=== PATIENT | male | born 1965 | race Caucasian/White ===

== ENCOUNTER 2017-06-22 16:45 | Emergency (ER) | payer MEDICARE, OTHER ==
[~2017-06-22] VITALS: Ht 172.7 cm; Wt 76.2 kg
[~2017-06-22 16:45] MED LIST: AUGMENTIN 875-1 EACH PO; BACTROBAN2% TP; CLONAZEPAM 1MG T1 MG PO; KEFLEX 500MG.500 MG PO; LEVOTHYROXINE0.1 MG PO; LORTAB 5/500 501 TAB PO; LORTAB 7.5/3251 TAB PO; MEDROL 4MG. DOSE4 MG PO; METHOCARBAMOL750 MG PO; NAPROSYN 500MG500 MG PO; SEPTRA DS 800 M1 TAB PO
--- OUTSIDE RECORDS SUMMARY | 2017-06-22 17:03 | External Medical Summary Rpt | CCD ---
Author Author , NICOLE Organization NICOLE Address Unknown Phone [email or web address] Purpose Continuity of Care Document - 06-20-2017 through 2016 Results Labs Lab Lab Date Result Refere Interp Status Commen Order Detail nces retati t Range on Erythrocyte sedimentation rate by damaso (06-20-2017 17:10) Erythro = 57 0-20 complet cyte 017 mm/hr ed sedimen 17:10 tation rate by damaso CBC w auto diff (06-20-2017 17:10) Automat = 0.1 0.0-0.4 complet ed 017 K/mm3 ed blood 17:10 eosinop hil count Blood = 11.8 4.8-10. complet leukocy 017 K/MM3 8 ed thee 17:10 count (number /volume ) Automat = 12.6 11.5-17 complet ed 017 % .5 ed erythro 17:10 cyte distrib ution width Red = 4.56 4.6-6.2 complet blood 017 M/mm3 ed cell 17:10 count Blood = 343 142-424 complet platele 017 K/mm3 ed t count 17:10 Automat = 7.4 7.4-10. complet ed 017 fl 4 ed blood 17:10 platele t mean volume rosalind [place] % = 9.1 % 1.7-9.3 complet 017 ed 17:10 Absolut = 1.1 0.1-1.0 complet e 017 K/mm3 ed monocyt 17:10 e count Automat = 91.2 82.2-97 complet ed 017 fl .8 ed erythro 17:10 cyte mean corpusc ular v Automat = 33.6 31.8-35 complet ed 017 g/dl .4 ed erythro 17:10 cyte mean corpusc ular h Mean = 30.6 27-31.2 complet corpusc 017 pg ed ular 17:10 hemoglo bin (MCH) determ Lymphoc = 12.1 10-50 complet yte 017 % ed count, 17:10 blood, automat ed Absolut = 1.4 0.7-4.5 complet e 017 K/mm3 ed lymphoc 17:10 yte count Blood = 14.0 14.1-18 complet hemoglo 017 g/dL .0 ed bin 17:10 measure ment (mass/v olum Blood = 41.5 42.0-52 complet hematoc 017 % .0 ed rit 17:10 (volume fractio n) Granulo = 77.2 37.0-80 complet cyte 017 % .0 ed percent 17:10 age Blood = 9.1 1.3-8.0 complet granulo 017 K/mm3 ed cytes 17:10 automat ed count (numb Automat = 0.9 % 0.1-12. complet ed 017 0 ed blood 17:10 eosinop hils/10 0 leukocy t Baso % = 0.7 % 0.1-2.0 complet 017 ed 17:10 Automat = 0.1 0-0.2 complet ed 017 K/MM3 ed blood 17:10 basophi l count (count/ vo Blood lactic acid measurement (moles/vol (06-20-2017 17:10) Blood = 1.0 0.4-2.0 complet lactic 017 mmol/L ed acid 17:10 measure ment (moles/ vol CRP (06-20-2017 17:10) CRP = 12.1 0.0-0.9 complet 017 MG/DL ed 17:10 Comprehensive metabolic panel (06-20-2017 17:10) Protein = 7.5 6.4-8.2 complet total 017 gm/dL ed ser/hector 17:10 s ALT = 20 12-78 complet (SGPT) 017 U/L ed ser/hector 17:10 s Serum = 13 15-37 complet or 017 U/L ed plasma 17:10 asparta te aminotr ansfera Serum = 136 136-145 complet sodium 017 mmoL/L ed measure 17:10 ment Serum = 4.0 3.5-5.1 complet potassi 017 mmoL/L ed um 17:10 measure ment Serum = 84 74-106 complet or 017 mg/dL ed plasma 17:10 glucose measure ment (mas Serum = 4.0 1.3-3.2 complet globuli 017 gm/dL ed n 17:10 measure ment (mass/v olume) Estimat = 89 >60 complet ed 017 ML/MIN ed glomeru 17:10 lar filtrat ion rate (GF Comment: REFERENCE RANGE: >60 ML/MIN/1.73 SQUARE METERS Comment: If this patient is -[place]agu[place], then multiply the Comment: result by 1.210. Estimat = 105 50-200 complet ion of 017 ML/MIN ed creatin 17:10 ine renal clearan ce Serum = 0.9 0.70-1. complet or 017 mg/dL 30 ed plasma 17:10 creatin ine measure ment ( Carbon = 28 21.0-32 complet dioxide 017 mmoL/L .0 ed 17:10 measure ment Serum = 103 98-107 complet or 017 mmoL/L ed plasma 17:10 chlorid e measure ment (mo Serum = 9.3 8.5-10. complet or 017 mg/dL 1 ed plasma 17:10 calcium measure ment (mas Serum = 13 7-18 complet or 017 mg/dL ed plasma 17:10 urea nitroge n measure men Serum = 0.5 0.2-1.0 complet or 017 mg/dL ed plasma 17:10 total bilirub in measure m Serum = 77 46-116 complet or 017 U/L ed plasma 17:10 alkalin e phospha tase rosalind Serum = 3.5 3.4-5.0 complet or 017 gm/dL ed plasma 17:10 albumin measure ment (mas Serum 11-02-2 = 0.9 1.1-1.8 complet or 017 ed plasma 17:10 albumin /globul in mass ra
--- OUTSIDE RECORDS SUMMARY | 2017-06-22 17:03 | External Medical Summary Rpt | CCD ---
Author Author , NICOLE Organization NICOLE Address Unknown Phone [email or web address] Purpose Continuity of Care Document - 06-20-2017 [...] blood 17:10 platele t mean volume rosalind [place] % = 9.1 % 1.7-9.3 complet 017 [...] SQUARE METERS Comment: If this patient is -Russian, then multiply the Comment: result by 1.210. [...]
--- OUTSIDE RECORDS SUMMARY | 2017-06-22 17:04 | External Medical Summary Rpt | CCD ---
Demographics Preferred Language [place] Citizen Marital Status Unknown Hinduism Affiliation Unknown Race Unknown Ethnic Group Unknown Author Author , VALENTINA Organization [facility] Address Unknown Phone Immunization Unable to retrieve immunization data due to connection failure with Immunization Registry. Please try again later.
--- OUTSIDE RECORDS SUMMARY | 2017-06-22 17:04 | External Medical Summary Rpt | CCD ---
Demographics Preferred Language Slovenian Marital Status Unknown Adventism Affiliation Unknown Race Unknown Ethnic Group Unknown Author Author , VALENTINA Organization [facility] Address Unknown Phone Immunization Unable to retrieve immunization data due to connection failure with Immunization Registry. Please try again later.
--- OUTSIDE RECORDS SUMMARY | 2017-06-22 17:05 | External Medical Summary Rpt ---
Author Author NICOLE Amanda, [employer] Organization [employer] Address Unknown Phone Unavailable Results CBC W Auto Differential panel in Blood Observa Value Referen Units Interpr Notes Date tion ce etation Range Basophils 0 - 0.2 K/MM3 Normal No Nov 2 informati 2017 5:10 [#/volume on in PM ] in source Blood by data Automated count Basophils 0.1 - 2.0 % Normal No Nov 2 /100 informati 2017 5:10 leukocyte on in PM s in source Blood by data Automated count Eosinophi 0.0 - 0.4 K/mm3 Normal No Jun 2 ls informati 2017 5:10 [#/volume on in PM ] in source Blood by data Automated count Eosinophi 0.1 - % Normal No Jun 2 ls/100 12.0 informati 2017 5:10 leukocyte on in PM s in source Blood by data Automated count Granulocy 1.3 - 8.0 K/mm3 High No Nov 2 thee informati 2017 5:10 [#/volume on in PM ] in source Blood by data Automated count Granulocy 37.0 - % Normal No Jun 2 thee/100 80.0 informati 2017 5:10 leukocyte on in PM s in source Blood by data Automated count Hematocri 42.0 - % Low No Jun 2 t [Volume 52.0 informati 2017 5:10 on in PM Fraction] source of Blood data Hemoglobi 14.1 - g/dL Low No Jun 2 n 18.0 informati 2017 5:10 [Mass/vol on in PM ume] in source Blood data Lymphocyt 0.7 - 4.5 K/mm3 Normal No Jun 2 es informati 2017 5:10 [#/volume on in PM ] in source Unspecifi data ed specimen by Automated count Lymphocyt 10 - 50 % Normal No Jun 2 es informati 2017 5:10 [#/volume on in PM ] in source Unspecifi data ed specimen by Automated count Erythrocy 27 - 31.2 pg Normal No Jun 2 te mean informati 2017 5:10 corpuscul on in PM ar source hemoglobi data n [Entitic mass] Erythrocy 31.8 - g/dl Normal No Jun 2 te mean 35.4 informati 2017 5:10 corpuscul on in PM ar source hemoglobi data n concentra tion [Mass/vol ume] by Automated count Erythrocy 82.2 - fl Normal No Jun 2 te mean 97.8 informati 2016 5:10 corpuscul on in PM ar volume source [Entitic data volume] by Automated count Monocytes 0.1 - 1.0 K/mm3 High No Jun 2 informati 2016 5:10 [#/volume on in PM ] in source Blood by data Automated count Monocytes 1.7 - 9.3 % Normal No Jun 2 /100 informati 2017 5:10 leukocyte on in PM s in source Blood by data Automated count Platelet 7.4 - fl Normal No Jun 2 mean 10.4 informati 2016 5:10 volume on in PM [Entitic source volume] data in Blood by Automated count Platelets 142 - 424 K/mm3 Normal No Jun 2 informati 2016 5:10 [#/volume on in PM ] in source Blood data Erythrocy 4.6 - 6.2 M/mm3 Low No Jun 2 thee informati 2017 5:10 [#/volume on in PM ] in source Amniotic data fluid Erythrocy 11.5 - % Normal No Jun 2 te 17.5 informati 2016 5:10 distribut on in PM ion width source [Entitic data volume] by Automated count Leukocyte 4.8 - K/MM3 High No Jun 2 s 10.8 informati 2016 5:10 [#/volume on in PM ] in source Blood data Erythrocyte sedimentation rate by Westergren method Observa Value Referen Units Interpr Notes Date tion ce etation Range Erythrocy 0 - 20 mm/hr High No Jun 2 te informati 2017 5:10 sedimenta on in PM tion rate source by data Westergre n method Lactate [Moles/volume] in Blood Observa Value Referen Units Interpr Notes Date tion ce etation Range Lactate 0.4 - 2.0 mmol/L Normal No Jun 2 [Moles/vo informati 2016 5:10 lume] in on in PM Blood source data Comprehensive metabolic 2000 panel in Serum or Plasma Observa Value Referen Units Interpr Notes Date tion ce etation Range Albumin/G 1.1 - 1.8 No Low No Nov 2 lobulin informati informati 2016 5:10 [Mass on in on in PM ratio] in source source Serum or data data Plasma Albumin 3.4 - 5.0 gm/dL Normal No Nov 2 [Mass/vol informati 2017 5:10 ume] in on in PM Serum or source Plasma data Alkaline 46 - 116 U/L Normal No Jun 2 phosphata informati 2016 5:10 se on in PM [Enzymati source c data activity/ volume] in Serum or Plasma Bilirubin 0.2 - 1.0 mg/dL Normal No Jun 2 .total informati 2016 5:10 [Mass/vol on in PM ume] in source Serum or data Plasma Urea 7 - 18 mg/dL Normal No Jun 2 nitrogen informati 2016 5:10 [Mass/vol on in PM ume] in source Serum or data Plasma Calcium 8.5 - mg/dL Normal No Jun 20 [Mass/vol 10.1 informati 2016 5:10 ume] in on in PM Serum or source Plasma data Chloride 98 - 107 mmoL/L Normal No Jun 2 [Moles/vo informati 2016 5:10 lume] in on in PM Serum or source Plasma data Carbon 21.0 - mmoL/L Normal No Jun 2 dioxide, 32.0 informati 2016 5:10 total on in PM [Moles/vo source lume] in data Serum or Plasma Creatinin 0.70 - mg/dL Normal No Jun 2 e 1.30 informati 2016 5:10 [Mass/vol on in PM ume] in source Serum or data Plasma Creatinin 50 - 200 ML/MIN Normal No Jun 2 e renal informati 2016 5:10 clearance on in PM source predicted data by Cockcroft -Gault formula Estimated >60 ML/MIN No REFERENCE Nov 2 informati RANGE: 2017 5:10 glomerula on in >60 PM r source ML/MIN/1. filtratio data 73 SQUARE n rate METERSIf (GF this patient is -A merican, then multiply theresult by 1.210. Globulin 1.3 - 3.2 gm/dL High No Jun 2 [Mass/vol informati 2016 5:10 ume] in on in PM Serum source data Glucose 74 - 106 mg/dL Normal No Jun 2 [Mass/vol informati 2016 5:10 ume] in on in PM Serum or source Plasma data Potassium 3.5 - 5.1 mmoL/L Normal No Jun 20 informati 2016 5:10 [Moles/vo on in PM lume] in source Serum or data Plasma Sodium 136 - 145 mmoL/L Normal No Jun 20 [Moles/vo informati 2016 5:10 lume] in on in PM Serum or source Plasma data Aspartate 15 - 37 U/L Low No Jun 20 informati 2016 5:10 aminotran on in PM sferase source [Enzymati data c activity/ volume] in Serum or Plasma Alanine 12 - 78 U/L Normal Jun 20 aminotran informati 2016 5:10 sferase on in PM [Enzymati source c data activity/ volume] in Serum or Plasma Protein 6.4 - 8.2 gm/dL Normal Jun 20 [Mass/vol informati 2016 5:10 ume] in on in PM Serum or source Plasma data CRP Observa Value Referen Units Interpr Notes Date tion ce etation Range CRP 0.0 - 0.9 MG/DL High No Jun 20 informati 2016 5:10 on in PM source data
[2017-06-22 17:28] VITALS: BP 132/75
--- NOTE | 2017-06-22 17:28 | Emergency Room Report ---
History of Present Illness Time Seen by [id number] Presenting Problem in Triage Pt arrived:Walked Presenting Problem:[facility] PATIENT WITH DX OF BURSITIS AND CELLULITIS AND PLACEMENT ON CLINDAMYCIN ATB'S WITH ONE FULL DAYS DOSAGE IN AT TIME OF PRESENTATION: HIS LEFT ELBOW HAD PURULENT DRAINAGE ON THE BANDAID WHEN IT WAS REMOVED PER NSG. PT IS AFEBRILE. JUST NOT SURE WHAT TO DO. 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 N Clinical Suspician of Infection? N Mental Status: 1 - Regular (Normal Baseline) Sepsis Risk:Low Sepsis Risk Have you (or family members/close friends) recently traveled outside the [place]? N If Yes, where/when: Have you had exposure to infectious disease within the past month? TB? Other? Specify: Patient transferred to [place] two days ago with STS and cellulitis to left elbow. Initial event occurred two months prior due to puncture wound from stick when fell. Was placed on Clindamycin at the [place] and d/c home yesterday. He reports copious drainage from left elbow s/p shower today. He states there "was a trail of pus all over the house". He states that since the elbow area drained, he has significant pain relief and feels "a whole bunch better". Wound cultures obtained by staff on arrival. Overall, vast improvement of redness since initiated [facility] the [facility] the [facility]. He has no fever or vomiting. ALLERGIES Coded Allergies: venom-honey bee (BEE VENOM (HONEY BEE)) (06/22/17) Home Medications Active Scripts Amoxicillin/Potassium Clav (Augmentin 875-125 Tablet) 1 EACH PO BID #20 TAB Prov: 12/22/15 Reported Medications Clonazepam (Clonazepam 1MG) 1 MG PO BIDP PRN ANXIETY Methocarbamol (Methocarbamol 750MG) 750 MG PO BID MISCELLANEOUS (UNKNOWN MEDICATION) 1 CAP PO DAILY LEVOTHYROXINE SOD (Synthroid) 0.1 MG PO DAILY HYDROCODONE/ACETAMINOPHEN (Lortab 7.5-325 MG Tablet) 1 TAB PO TID History Medical History General CAD? No Angina: No [place]: No Hypertension? No Hyperlipidemia? Yes CHF? No DVT? No PE? No COPD? No Asthma? No Anemia? No GERD? No Gastric ulcers? No GI Bleed? No Hernia? No Thyroid Problems? No Hypothyroidism? Yes CVA? No Seizures? No Diabetes? No Renal Insuffiency? No End Stage Renal Disease? No UTI? No Stones? No BPH? No GB Disease: No Nephritic Syndrome? No Asplenia? No Hepatitis? No Sickle Cell Disease? No Arthritis? No Migraines? No Cataracts? No Glaucoma? No MRSA? No HIV? No TB? No Anxiety? No Depression? No Cancer? No More? No Immunization Hx Ped.Immunizations UTD Yes DT/Tetanus 1-4 YRS Surgical Hx Previous Surgery?Y RIGHT FOOT BUTTOCKS Social History Smoking Hx Smoker: Unknown if Ever Smoked Tobacco: Yes Type N/A Packs/day < 1 Pack Alcohol Alcohol: Yes Review of Systems All Other Systems Reviewed and Negative Musculoskeletal see HPI Skin see HPI Physical Exam Vital Signs Vital Signs Date Time Temp Pulse Resp B/P Pulse O2 O2 Flow FiO2 Ox Delivery Rate 06/22 1657 97.7 72 18 125/76 99 General Appearance normal appearance, WD/WN, no apparent distress Eye Exam - bilateral eye normal exam, bilateral eye PERRL, bilateral eye EOMI Respiratory Status No: respiratory distress. Cardiovascular no peripheral edema Extremities normal range of motion, L elbow looks vastly improved cf to prior visit to ED when see by this MD. The redness is localized to olecranon area, and there is a small opening with a small amount of purulent drainage, but is less boggy on palpation now. No subcutaneous air. No streaks. He has good ROM and is n/v intact. Strength 5 Upper Ext (L), 5 Upper Ext (R) Neurologic alert, normal exam, no motor/sensory deficits, oriented x 3 Medical Decision Making LABS/Meds/Orders Pt receiving controlled substance in ED? No Results/Orders Orders Procedure Date/time Status CULTURE, WOUND 06/22 1703 Active Departure Departure Time of Disposition 1725 Disposition DC Home or Self Care(routine) Clinical Impression Primary Impression: Visit for wound check Condition STABLE Patient Instructions DI for Wound Infection Additional Instructions Continue Clindamycin, have [facility] MD recheck wound in one to two days. Epsom salts in warm water compresses, ten to twenty minutes at a time every two to four hours while awake to help with drainage. Culture results will be returned to the lab in about five days; you may go to medical records for these results, and bring the results with you to the [facility] when you follow up. Discharge Counseling Counseled pt/family regarding diagnosis, medications/RX, home care, follow up needs ED Critical Care Critical Care No at [id number]
== END 2017-06-22 17:31 | disposition home or self-care (01) ==
LOC: ER 16:45
DX: L03.114 Cellulitis of left upper limb (principal); F17.210 Nicotine dependence, cigarettes, uncomplicated